=== PATIENT | male | born 1990 | race Hispanic/Latino ===

== ENCOUNTER 2023-02-15 15:00 | Emergency (ER) | payer BC ==
[2023-02-15] MEDS ORDERED: Cyclobenzaprine 10 MG Tab PO ONE (16:00)
[2023-02-15] MEDS ORDERED: Ibuprofen 800 MG Tab PO ONE (16:00)
== END 2023-02-15 16:40 | disposition home or self-care (01) ==
LOC: MW.ED 15:00
DX: S46.911D Strain of unspecified muscle, fascia and tendon at shoulder and upper arm level, right arm, subsequent encounter (principal); X58.XXXD Exposure to other specified factors, subsequent encounter
CPT/HCPCS: 71101; 99283; A9270

== ENCOUNTER 2024-03-05 23:57 | Emergency (ER) | payer SELFPAY ==
[2024-03-06] MEDS: Diphtheria,Pertussis(Acell),Tetanus Vaccine 0.5 ML Syringe IM ONE (02:54)
[2024-03-06] MEDS: Lidocaine 1% with EPINEPHrine 1:100,000 10 ML MDV INJECT ONE (03:38)
== END 2024-03-06 05:00 | disposition home or self-care (01) ==
LOC: MW.ED 23:57
DX: S61.411A Laceration without foreign body of right hand, initial encounter (principal); Z87.81 Personal history of (healed) traumatic fracture; W22.8XXA Striking against or struck by other objects, initial encounter; Z23 Encounter for immunization
CPT/HCPCS: 12001; 73130-26-RT; 73130-RT; 90471; 99283; 99283-25; J3490